=== PATIENT | female | born 1930 | race Two or more races ===

== ENCOUNTER → 2017-08-27 | Outpatient (CLI) | END | disposition home or self-care (01) ==

== ENCOUNTER → 2017-12-21 | Outpatient (CLI) | END | disposition home or self-care (01) ==

== ENCOUNTER 2017-12-23 06:37 | Inpatient (IN) | END 2017-12-28 20:00 | DRG 470 ==

== ENCOUNTER 2017-12-28 20:36 | Inpatient (IN) | END 2018-01-10 12:45 | disposition home health service (06) | DRG 560 ==